=== PATIENT | male | born 1980 | race Caucasian/White ===

== ENCOUNTER → 2017-03-20 | Outpatient (CLI) | payer MEDICAID | LOC: BRMIMAGING 13:16 | PROVIDERS: ATTEND Internal Medicine | DX: M43.12 Spondylolisthesis, cervical region (principal); M02.88 Other reactive arthropathies, vertebrae; M85.442 Solitary bone cyst, left hand; M02.871 Other reactive arthropathies, right ankle and foot | CPT/HCPCS: 72050-PO; 72114-PO; 73130-PO; 73630-PO ==

== ENCOUNTER → 2017-03-30 | Outpatient (CLI) | payer MEDICAID | PROVIDERS: ATTEND Otolaryngology | DX: R13.10 Dysphagia, unspecified (principal); R63.4 Abnormal weight loss | CPT/HCPCS: 92611-GN ==

== ENCOUNTER 2017-06-14 12:16 | Day surgery (SDC) | payer MEDICAID ==
[2017-06-14] MEDS ORDERED: LIDOCAINE 1% 2 ML INJ ID PRN (12:28)
[2017-06-14] MEDS ORDERED: NS 500 ML IV SCH (12:30)
--- NOTE | 2017-06-14 14:27 | PDPROPOC ---
Sedation Plan of Care Sedation Plan of Care: vital signs stable, mental status noted, patient educated of risks, benefits, alternatives, patient can tolerate sedation ASA Classification: ASA 1 Mallampati Score: Class 1 332 Rule: 332
--- NOTE | 2017-06-14 14:27 | PDHPUP ---
History & Physical Update H&P update statement: This history and physical update is based on an assessment of the patient which was completed after admission or registration (within 24 hours), but prior to the surgery/procedure. H&P update: H&P reviewed & patient examined H&P changes: none
[2017-06-14] MEDS ORDERED: fentaNYL 100 MCG/2 ML INJ ONE (14:31)
[2017-06-14] MEDS ORDERED: MIDAZOLAM 2 MG/2 ML VIAL ONE (14:32)
--- NOTE | 2017-06-14 14:50 | POSTOPPROG ---
Post Op Note Date of Operation: 06/14/17 Surgeon: Christiano Cruz Anesthesia: IV Sedation Pre-op Diagnosis: Dysphagia, bloating. Post-op Diagnosis: same Indication: same Procedure: egd/bx/dilation Inf/Abcess present in the surg proc area at time of surgery?: No Complications: none
[2017-06-14 15:26] VITALS: RESP 14
[2017-06-14 15:27] VITALS: O2SAT 97
[2017-06-14 16:38] VITALS: BP 96/53; PULSE 73
[2017-06-14 16:39] VITALS: TEMP 97.7
--- NOTE | 2017-06-14 17:26 | GPN ---
[f rep st] PROCEDURE NOTE PROCEDURE: Gastroscopy with biopsies and Savary dilation. INDICATIONS: The patient is a 36-year-old male, who has been having dysphagia to solids. He has licona d a normal swallow study and barium swallow. He also has globus. He seen some modest improvement o n omeprazole. In addition, patient has some bloating and looser stools. Gastroscopy is being performed to evaluate for dysphagia and biopsy for celiac disease. PROCEDURE: After proper consent was obtained, patient was placed in left lateral decubitus position . Received 6 mg of intravenous Versed and 100 mcg of intravenous fentanyl. Video gastroscope was introduced through the mouth, down the esophagus into the stomach, past the py lorus, into the duodenum. FINDINGS: 1. Grossly normal EGD exam with Z-line at 40 cm. No obvious strictures noted. 2. CLOtest and biopsies of the duodenum for celiac were taken. A Savary wire was placed down the instrument and then a 20 mm Savary dilator was placed on it down t he esophagus. This was all removed and then the gastroscope was replaced. No evidence of any stric ture or fracturing was noted. At this point, the instrument was removed. Patient tolerated the procedure well and was returned to the recovery room in stable condition. IMPRESSION: Dysphagia but may be due to globus or reflux. RECOMMENDATIONS: Patient will stay on omeprazole. I will follow up on biopsy reports and recommend accordingly. /[id number]/MODL
== END 2017-06-14 15:43 | disposition home or self-care (01) ==
LOC: FSGY 12:16
PROVIDERS: ATTEND Internal Medicine Gastroenterology
PROC: 0DB98ZX Excision of Duodenum, Via Natural or Artificial Opening Endoscopic, Diagnostic (ICD-10-PCS; principal; 2017-06-14 13:30)
DX: R13.10 Dysphagia, unspecified (principal); R14.0 Abdominal distension (gaseous)
CPT/HCPCS: J2250; J3010